=== PATIENT | female | born 1995 | race Hispanic/Latino ===

== ENCOUNTER 2017-11-07 11:38 | Emergency (ER) | payer OTHER | END 2017-11-07 12:35 | disposition home or self-care (01) | LOC: ERS 11:38 | DX: M54.5 Low back pain (principal) | CPT/HCPCS: 99283 ==

== ENCOUNTER 2017-11-12 11:54 | Outpatient (CLI) | payer OTHER | END 2017-11-12 11:55 | disposition home or self-care (01) | LOC: BICRAD 11:54 | PROVIDERS: ATTEND Family Medicine | DX: M54.5 Low back pain (principal) | CPT/HCPCS: 72100 ==